=== PATIENT | female | born 1995 | race Caucasian/White ===

== ENCOUNTER 2016-12-04 14:14 | Inpatient (IN) | payer OTHER ==
[~2016-12-04] VITALS: Ht 152.4 cm; Wt 43.5 kg
[2016-12-04] VITALS (27 sets, daily range): BP systolic 93–145; BP diastolic 50–84
[~2016-12-04 14:14] MED LIST: AMOX TR-K CLV1 EAC4 PO; Chromagen, Feogen, M PO; FLINTSTONES1 TABLET PO; LEVAQUIN500 MG PO; Motrin PO; PROMETHAZINE HC25 M1 PO
[2016-12-04] MEDS ORDERED: ACYCLOVIR400 MG PO (15:13)
[2016-12-04] MEDS ORDERED: METHADONE10 MG PO (15:13)
[2016-12-04 15:24] LABS: ADD MIUA? YES; BILIRUBIN NEGATIVE; BLOOD NEGATIVE; COLOR YELLOW ((YELLOW)); GLUCOSE (STRIP) NEGATIVE; KETONES NEGATIVE; LEUKOCYTES LARGE; NITRITE NEGATIVE; PROTEIN (STRIP) NEGATIVE; SPECIFIC GRAVITY 1.008 (1.000-1.030)
[2016-12-04 15:25] LABS: BACTERIA NONE SEEN; CASTS NONE SEEN /LPF; CRYSTALS NONE SEEN; EPITHELIAL CELLS 1+; MUCUS NONE SEEN; PATHOLOGICAL CAST NONE SEEN; RED BLOOD CELLS 0-5 /HPF (0-5); SMALL ROUND CELL NONE SEEN; UCUL ADDED? YES; WHITE BLOOD CELLS TNTC /HPF (0-5); YEAST-LIKE CELL NONE SEEN
[2016-12-04 15:31] LABS: AMPHETAMINES QUANT VALUE 0 NG/ML; BARBITUATES QUANT VALUE 0 NG/ML; BENZODIAZEPINES QUANT VALUE 0 NG/ML; BENZODIAZEPINES, URINE SCREEN Negative (200 ng/mL); MARIJUANA QUANT VALUE 0 NG/ML; OPIATES QUANTITATIVE VALUE 0 NG/ML; PHENCYCLIDINE QUANT VALUE 0 NG/ML
[2016-12-04 15:59] LABS: HEMATOCRIT 31.8 % (36.0-46.0); MCH 30.4 PG (29.0-34.0); MCHC 34.6 G/DL (30.0-36.0); MCV 87.8 FL (83-99); MEAN PLAT.VOLUME 11.5 uM^3 (9.5-12.4); PLATELET COUNT 166 K/uL (156-360); RBC DIS.WIDTH-CV 12.3 % (11.8-14.6); RBC DIS.WIDTH-SD 39.4 % (39-53); RED BLOOD COUNT 3.62 M/uL (3.80-5.20); WHITE BLOOD COUNT 11.6 K/uL (4.1-10.2)
[2016-12-04 16:00] LABS: EOSINOPHIL COUNT 0.1 K/uL (0-0.3); IMMATURE GRANULOCYTE (%) 0.3 % (0.0-0.7); MONOCYTE (%) 8.6 % (3-12); NEUTROPHIL COUNT 8.5 K/uL (1.8-6.4)
[2016-12-04 16:06] LABS: ANION GAP 6 MEQ/L (2-14); CHLORIDE 103 MEQ/L (99-109); POTASSIUM 4.4 MEQ/L (3.7-5.4); SAMPLE HEMOLYSIS CHECK 0; SAMPLE ICTERIC CHECK 0; SAMPLE LIPEMIA CHECK 0; SODIUM 137 MEQ/L (136-147); TOTAL BILIRUBIN 0.6 MG/DL (0.0-1.0)
[2016-12-04 16:12] LABS: ALKALINE PHOSPHATASE 109 IU/L (3-129); GFR ESTIMATE (CALCULATED) > 59 mL/min/; GLUCOSE 65 mg/dL (70-99); UREA NITROGEN (BUN) 4 mg/dL (9-23)
[2016-12-04 22:52] LABS: CANDIDA DNA PROBE NEGATIVE; GARDNERELLA DNA PROBE NEGATIVE; INTERNAL CONTROL VALID? YES
[2016-12-05] VITALS (13 sets, daily range): BP systolic 89–108; BP diastolic 53–61
[2016-12-05 07:23] LABS: Estimated Average Glucose 103 mg/dL (70-123); HEMOGLOBIN A1c (GLYCOHEMOGLOB) 5.2 % HGB (Below 5.7)
[2016-12-05 09:45] LABS: TREPONEMA ANTIBODY NEGATIVE (NEGATIVE)
[2016-12-05 11:57] LABS: CHLAMYDIA TRACHOMATIS NEGATIVE; NEISSERIA GONORRHOEAE NEGATIVE
[2016-12-05 11:59] LABS: HBSG INDEX 0.18
[2016-12-05 12:00] LABS: ANTI-HEPATITIS A VIRUS (IGM) Nonreactive; HAV INDEX 0.15; HPCA INDEX 0.21
[2016-12-05 12:02] LABS: ANTI-HEPATITIS B CORE (IGM) Nonreactive; HBC IgM INDEX 0.08
[2016-12-05] MEDS ORDERED: IBUPROFEN800 MG PO (12:07)
[2016-12-05] MEDS ORDERED: Tylenol Extra Streng PO (12:07)
== END 2016-12-05 15:18 | disposition home or self-care (01) | DRG 775 ==
LOC: LDRP-OP 14:14 → 2WEST 14:15
PROVIDERS: Advanced Practice Midwife; Obstetrics & Gynecology
PROC: 3E0R3CZ (ICD-10-PCS; principal; 2016-12-05)
PROC: 10E0XZZ Delivery of Products of Conception, External Approach (ICD-10-PCS; principal; 2016-12-05)
PROC: 00HU33Z Insertion of Infusion Device into Spinal Canal, Percutaneous Approach (ICD-10-PCS; principal; 2016-12-05)
PROC: 10907ZC Drainage of Amniotic Fluid, Therapeutic from Products of Conception, Via Natural or Artificial Opening (ICD-10-PCS; principal; 2016-12-05)
DX: O60.10X1 Preterm labor with preterm delivery, unspecified trimester, fetus 1 (principal); Z3A.31 31 weeks gestation of pregnancy; O23.43 Unspecified infection of urinary tract in pregnancy, third trimester; O99.334 Smoking (tobacco) complicating childbirth; F17.200 Nicotine dependence, unspecified, uncomplicated; O99.323 Drug use complicating pregnancy, third trimester; O23.593 Infection of other part of genital tract in pregnancy, third trimester; F11.90 Opioid use, unspecified, uncomplicated
CPT/HCPCS: 80053; 80074; 81003; 82731; 83036; 85025; 85025 91; 86780; 86850; 86900; 86901; 87070; 87075; 87081; 87086; 87205; 87480; 87491; 87510; 87591; 87653; 87660; C1755; G0378; J0702; J2405; J2540; J3010; J3475; J7120

== ENCOUNTER 2018-03-05 05:41 | Emergency (ER) | payer OTHER ==
[~2018-03-05] VITALS: Ht 152.4 cm; Wt 42.2 kg
[~2018-03-05 05:41] MED LIST changes: +ACYCLOVIR400 MG PO; +IBUPROFEN800 MG PO; +METHADONE10 MG PO; +Tylenol Extra Streng PO
[2018-03-05 07:05] LABS: HEMATOCRIT 34.4 % (36.0-46.0); HEMOGLOBIN 11.6 G/DL (11.9-15.5); MCH 28.5 PG (29.0-34.0); MCHC 33.7 G/DL (30.0-36.0); MCV 84.5 FL (83-99); PLATELET COUNT 282 K/uL (156-360); RBC DIS.WIDTH-CV 14.2 % (11.8-14.6); RBC DIS.WIDTH-SD 44.1 % (39-53); RED BLOOD COUNT 4.07 M/uL (3.80-5.20)
[2018-03-05] MEDS ORDERED: KEFLEX500 MG PO (07:26)
[2018-03-05] MEDS ORDERED: BACTRIM,SEPT1 TABLET PO (07:26)
[2018-03-05 07:41] VITALS: BP 120/82
[2018-03-05 07:41] LABS: CHLORIDE 106 MEQ/L (99-109); CREATININE 0.6 MG/DL (0.6-1.3); GFR ESTIMATE (CALCULATED) > 59 mL/min/; GLUCOSE 128 mg/dL (70-99); POTASSIUM 3.6 MEQ/L (3.7-5.4); SODIUM 138 MEQ/L (136-147); UREA NITROGEN (BUN) 6 mg/dL (9-23)
== END 2018-03-05 07:41 | disposition home or self-care (01) ==
LOC: EME 05:41
PROVIDERS: Nurse Practitioner Family
PROC: 0H9EXZZ Drainage of Left Lower Arm Skin, External Approach (ICD-10-PCS; principal; 2018-03-05)
DX: L02.414 Cutaneous abscess of left upper limb (principal); L03.114 Cellulitis of left upper limb; Z88.0 Allergy status to penicillin; Z88.8 Allergy status to other drugs, medicaments and biological substances
CPT/HCPCS: 73200; 80048; 85027; 99281; 99284

== ENCOUNTER 2018-03-13 09:50 | Emergency (ER) | payer OTHER ==
[~2018-03-13 09:50] MED LIST changes: +BACTRIM,SEPT1 TABLET PO; +KEFLEX500 MG PO
[2018-03-13 10:06] LABS: BASOPHIL (%) 0.2 % (0-1); EOSINOPHIL (%) 0.1 % (0-5); HEMATOCRIT 34.1 % (36.0-46.0); HEMOGLOBIN 11.8 G/DL (11.9-15.5); IMMATURE GRANULOCYTE (%) 0.5 % (0.0-0.7); LYMPHOCYTE (%) 26.2 % (15-42); LYMPHOCYTE COUNT 2.6 K/uL (1.0-2.8); MCH 28.4 PG (29.0-34.0); MCHC 34.6 G/DL (30.0-36.0); MONOCYTE (%) 6.7 % (3-12); MONOCYTE COUNT 0.7 K/uL (0-0.8); NEUTROPHIL (%) 66.3 % (45-76); NEUTROPHIL COUNT 6.6 K/uL (1.8-6.4); PLATELET COUNT 328 K/uL (156-360); RBC DIS.WIDTH-CV 14.1 % (11.8-14.6); RBC DIS.WIDTH-SD 42.2 % (39-53); RED BLOOD COUNT 4.16 M/uL (3.80-5.20)
[2018-03-13 10:20] LABS: AMYLASE 31 IU/L (1-118); CHLORIDE 104 mEq/L (99-109); POTASSIUM 3.7 mEq/L (3.7-5.4); SODIUM 137 mEq/L (136-147)
[2018-03-13 10:22] LABS: GLUCOSE 86 mg/dL (70-99)
[2018-03-13 10:25] LABS: SERUM ETHYL ALCOHOL < 10 mg/dL
[2018-03-13 10:26] LABS: CREATININE 0.8 mg/dL (0.6-1.3); GFR ESTIMATE (CALCULATED) > 59 mL/min/
[2018-03-13 10:27] LABS: UREA NITROGEN (BUN) 6 mg/dL (9-23)
[2018-03-13 10:29] LABS: LIPASE 14 U/L (1.0-51.0)
[2018-03-13 10:30] LABS: QUANTITATIVE HCG < 4.0 MIU/ML
== END 2018-03-13 11:15 ==
LOC: TRA 09:50
PROVIDERS: Emergency Medicine
DX: S13.9XXA Sprain of joints and ligaments of unspecified parts of neck, initial encounter (principal); R07.89 Other chest pain; R51 Headache; M54.5 Low back pain; V48.1XXA Car passenger injured in noncollision transport accident in nontraffic accident, initial encounter; Y92.488 Other paved roadways as the place of occurrence of the external cause; Z88.0 Allergy status to penicillin; Z88.8 Allergy status to other drugs, medicaments and biological substances
CPT/HCPCS: 70450; 71260; 72125; 72129; 72132; 74177; 80048; 81003; 82150; 83690; 84702; 85025; 86850; 86900; 86901; 90832; G0480

== ENCOUNTER 2018-06-22 06:18 | Emergency (ER) | payer OTHER ==
[~2018-06-22] VITALS: Ht 152.4 cm; Wt 45.7 kg
[2018-06-22 08:18] LABS: HEMATOCRIT 37.3 % (36.0-46.0); HEMOGLOBIN 12.9 G/DL (11.9-15.5); MCH 30.1 PG (29.0-34.0); MCHC 34.6 G/DL (30.0-36.0); MCV 86.9 FL (83-99); PLATELET COUNT 199 K/uL (156-360); RBC DIS.WIDTH-CV 13.2 % (11.8-14.6); RBC DIS.WIDTH-SD 41.5 % (39-53); RED BLOOD COUNT 4.29 M/uL (3.80-5.20); WHITE BLOOD COUNT 14.1 K/uL (4.1-10.2)
[2018-06-22 09:18] LABS: CHLORIDE 107 MEQ/L (99-109); CREATININE 0.7 MG/DL (0.6-1.3); GFR ESTIMATE (CALCULATED) > 59 mL/min/; GLUCOSE 100 mg/dL (70-99); POTASSIUM 4.2 MEQ/L (3.7-5.4); SODIUM 140 MEQ/L (136-147); UREA NITROGEN (BUN) 7 mg/dL (9-23)
[2018-06-22 09:37] LABS: QUANTITATIVE HCG < 4.0 MIU/ML
[2018-06-22] MEDS ORDERED: ROBAXIN750 MG PO (12:06)
[2018-06-22] MEDS ORDERED: NAPROSYN500 MG PO (12:06)
[2018-06-22 13:03] VITALS: BP 118/66
== END 2018-06-22 13:03 | disposition home or self-care (01) ==
LOC: TRA 06:18 → EME 06:18 → TRA 13:03
PROVIDERS: Nurse Practitioner Family
DX: S32.039A Unspecified fracture of third lumbar vertebra, initial encounter for closed fracture (principal); V43.62XA Car passenger injured in collision with other type car in traffic accident, initial encounter; Y92.411 Interstate highway as the place of occurrence of the external cause; F17.200 Nicotine dependence, unspecified, uncomplicated; Z88.0 Allergy status to penicillin
CPT/HCPCS: 72100; 72131; 80048; 84702; 85027; 99281; 99285; J1885